=== PATIENT | male | born 1965 | race Caucasian/White ===

== ENCOUNTER 2020-08-23 23:46 | Inpatient (IN) | payer OTHER ==
[~2020-08-23] VITALS: Ht 170.2 cm; Wt 117.3 kg
[~2020-08-23 23:46] MED LIST: ANTIVERT 12.512.5 MG PO; AUGMENTIN 875-1 EACH PO; CYCLOBENZAPRINE10 MG PO; ECHOCARDIOGRAM; ERYTHROMYCIN O3.5 GM OS; IBUPROFEN600 MG PO; KEFLEX500 MG PO; LASIX20 MG PO; LISINOPRIL20 MG PO; LODINE CAP 300300 MG PO; MIRALAX17 GM PO; NAPROSYN500 MG PO; NEURONTIN600 MG PO; NORCO 7.5-3251 EACH PO; PERCOCET 5-3251 EACH PO; PERCOCET 5/325 T1 EA PO; PREDNISONE 50 M50 MG PO; Voltaren Gel 1% TOP; XYLOCAINE 2% JE30 ML EXT; ZANAFLEX4 MG PO; ZANTAC150 MG PO; ZESTRIL10 MG PO; ZOLOFT25 MG PO; [UNRECOGNIZED DRUG - REMARK]
[2020-08-24 00:19] LABS: HEMOGLOBIN 15.7 gm/dl (14.0-17.5); RED BLOOD COUNT 5.31 M/UL (4.20-5.50); WHITE BLOOD COUNT 13.4 K/UL (4.5-11.0)
[2020-08-24 00:33] LABS: BUN/CREATININE RATIO 17 (0-10)
[2020-08-25 02:55] LABS: RED BLOOD COUNT 5.48 M/UL (4.20-5.50); WHITE BLOOD COUNT 11.3 K/UL (4.5-11.0)
[2020-08-25 03:14] LABS: BUN/CREATININE RATIO 15 (0-10)
[2020-08-25 11:11] LABS: HIV SCREEN 4TH GENERATION WRFX Non Reactive (Non Reactive)
[2020-08-26 03:29] LABS: HEMOGLOBIN 15.3 gm/dl (14.0-17.5); RED BLOOD COUNT 5.3 M/UL (4.20-5.50)
[2020-08-26 04:05] LABS: BUN/CREATININE RATIO 14 (0-10)
[2020-08-26 08:15] LABS: HBSAG SCREEN Negative (Negative); HEP A AB, IGM Negative (Negative); HEP B CORE AB, IGM Negative (Negative); HEP C VIRUS AB <0.1 (0.0-0.9)
[2020-08-26] MEDS ORDERED: NORVASC5 MG PO (12:24)
== END 2020-08-26 14:35 | disposition home or self-care (01) | DRG 917 ==
LOC: ER1 23:46 → CDU 08-24 01:45 → PROG CARE 08-24 01:45
PROVIDERS: Internal Medicine; Physician Assistant; ADMIT Internal Medicine
PROC: B24BZZ4 Ultrasonography of Heart with Aorta, Transesophageal (ICD-10-PCS; principal; 2020-08-24)
DX: T43.621A Poisoning by amphetamines, accidental (unintentional), initial encounter (principal); J96.01 Acute respiratory failure with hypoxia; G92 Toxic encephalopathy; J96.02 Acute respiratory failure with hypercapnia; B19.10 Unspecified viral hepatitis B without hepatic coma; E87.2 Acidosis; F19.10 Other psychoactive substance abuse, uncomplicated; F32.9 Major depressive disorder, single episode, unspecified; Z20.822 Contact with and (suspected) exposure to COVID-19; E66.01 Morbid (severe) obesity due to excess calories; R73.9 Hyperglycemia, unspecified; I25.10 Atherosclerotic heart disease of native coronary artery without angina pectoris; D72.828 Other elevated white blood cell count; R40.0 Somnolence; G47.33 Obstructive sleep apnea (adult) (pediatric); R73.03 Prediabetes; I50.9 Heart failure, unspecified; Z68.30 Body mass index [BMI] 30.0-30.9, adult
CPT/HCPCS: ECHO; 36415; 36600; 70450; 71045; 71046; 72125; 80053; 80074; 80307; 81001; 82140; 82550; 82553; 82607; 82746; 82803; 82962; 83036; 83735; 83874; 83880; 84100; 84132; 84439; 84443; 84484; 85025; 85027; 86140; 87389; 93005; 93306; 94660; 94760; 96374; 99285; G0480; J1650; J1940; U0002

== ENCOUNTER 2020-10-13 11:14 | Emergency (ER) | payer OTHER ==
[~2020-10-13 11:14] MED LIST changes: +NORVASC5 MG PO
[2020-10-13 13:00] LABS: HEMOGLOBIN 16.8 gm/dl (14.0-17.5); RED BLOOD COUNT 5.69 M/UL (4.20-5.50); WHITE BLOOD COUNT 5.1 K/UL (4.5-11.0)
[2020-10-13 13:25] LABS: BUN/CREATININE RATIO 16 (0-10)
[2020-10-13] MEDS ORDERED: MORGIDOX100 MG PO (14:38)
== END 2020-10-13 15:00 | disposition home or self-care (01) ==
LOC: ER1 11:14
PROVIDERS: Physician Assistant
DX: R05 Cough (principal); R06.02 Shortness of breath; I11.0 Hypertensive heart disease with heart failure; I50.9 Heart failure, unspecified; Z20.822 Contact with and (suspected) exposure to COVID-19
CPT/HCPCS: 0240U; 71045; 80053; 82550; 82553; 83874; 83880; 84484; 85025; 99285

== ENCOUNTER → 2021-02-03 | Outpatient (CLI) | payer OTHER ==
[~2021-02-03] MED LIST changes: +MORGIDOX100 MG PO
== END ==
LOC: HEART 5 11:08
DX: I11.0 Hypertensive heart disease with heart failure (principal); I50.9 Heart failure, unspecified; R06.02 Shortness of breath; M51.36 Other intervertebral disc degeneration, lumbar region; F32.9 Major depressive disorder, single episode, unspecified; K21.9 Gastro-esophageal reflux disease without esophagitis; B19.20 Unspecified viral hepatitis C without hepatic coma; Z00.00 Encounter for general adult medical examination without abnormal findings
CPT/HCPCS: 94060; 94729

== ENCOUNTER 2021-02-21 17:01 | Observation (INO) | payer OTHER ==
[~2021-02-21] VITALS: Ht 170.2 cm; Wt 122.6 kg
[2021-02-21 17:47] LABS: HEMOGLOBIN 15.5 gm/dl (14.0-17.5); RED BLOOD COUNT 5.21 M/UL (4.20-5.50)
[2021-02-21 18:05] LABS: BUN/CREATININE RATIO 17 (0-10)
== END 2021-02-22 15:12 | disposition left against medical advice (07) ==
LOC: ER1 17:01 → M/S 20:26 → CDU 20:26 → M/S 23:10
PROVIDERS: Emergency Medicine; Internal Medicine Infectious Disease; ADMIT Internal Medicine
DX: I11.0 Hypertensive heart disease with heart failure (principal); I50.33 Acute on chronic diastolic (congestive) heart failure; F17.200 Nicotine dependence, unspecified, uncomplicated; F19.10 Other psychoactive substance abuse, uncomplicated; E66.2 Morbid (severe) obesity with alveolar hypoventilation; B18.1 Chronic viral hepatitis B without delta-agent; R73.03 Prediabetes; Z20.822 Contact with and (suspected) exposure to COVID-19
CPT/HCPCS: 36415; 71045; 80053; 80061; 80307; 82550; 82553; 83036; 83874; 83880; 84484; 84550; 85025; 86140; 87040; 93005; 94660; 94760; 96374; 99285; G0378; J1940; U0002

== ENCOUNTER → 2021-08-03 | Outpatient (CLI) | payer OTHER | LOC: EXRD 10:14 | DX: R06.02 Shortness of breath (principal) | CPT/HCPCS: 71046 ==

== ENCOUNTER → 2021-08-26 | Outpatient (CLI) | payer OTHER | LOC: KOH-I 13:51 | DX: R93.89 Abnormal findings on diagnostic imaging of other specified body structures (principal); R06.02 Shortness of breath | CPT/HCPCS: 71250 ==

== ENCOUNTER → 2021-09-01 | Outpatient (CLI) | payer OTHER | LOC: WCC 07:31 | DX: I87.2 Venous insufficiency (chronic) (peripheral) (principal); L97.822 Non-pressure chronic ulcer of other part of left lower leg with fat layer exposed; L97.212 Non-pressure chronic ulcer of right calf with fat layer exposed; G47.30 Sleep apnea, unspecified; I11.0 Hypertensive heart disease with heart failure; I50.9 Heart failure, unspecified; B19.20 Unspecified viral hepatitis C without hepatic coma; R73.09 Other abnormal glucose; F15.10 Other stimulant abuse, uncomplicated; E66.09 Other obesity due to excess calories; Z68.41 Body mass index [BMI] 40.0-44.9, adult; Z79.899 Other long term (current) drug therapy ==

== ENCOUNTER → 2021-09-08 | Outpatient (CLI) | payer OTHER | END | disposition home or self-care (01) | LOC: WCC 07:20 | DX: I87.2 Venous insufficiency (chronic) (peripheral) (principal); L97.822 Non-pressure chronic ulcer of other part of left lower leg with fat layer exposed; L97.812 Non-pressure chronic ulcer of other part of right lower leg with fat layer exposed; I11.0 Hypertensive heart disease with heart failure; I50.9 Heart failure, unspecified; R73.09 Other abnormal glucose; G47.30 Sleep apnea, unspecified; F15.10 Other stimulant abuse, uncomplicated; E66.09 Other obesity due to excess calories; B19.20 Unspecified viral hepatitis C without hepatic coma; Z68.41 Body mass index [BMI] 40.0-44.9, adult; Z79.899 Other long term (current) drug therapy ==

== ENCOUNTER → 2021-09-10 | Outpatient (CLI) | payer OTHER | LOC: EXRD 10:55 | DX: M25.552 Pain in left hip (principal); M25.512 Pain in left shoulder; M19.012 Primary osteoarthritis, left shoulder | CPT/HCPCS: 73030; 73502 ==

== ENCOUNTER 2021-09-14 14:50 | Emergency (ER) | payer OTHER | END 2021-09-14 15:30 | disposition left against medical advice (07) | LOC: ER1 14:50 | DX: Z53.21 Procedure and treatment not carried out due to patient leaving prior to being seen by health care provider (principal) ==

== ENCOUNTER → 2021-09-15 | Outpatient (CLI) | payer OTHER | LOC: WCC 08:58 | DX: I87.2 Venous insufficiency (chronic) (peripheral) (principal); L97.822 Non-pressure chronic ulcer of other part of left lower leg with fat layer exposed; L97.212 Non-pressure chronic ulcer of right calf with fat layer exposed; S81.802A Unspecified open wound, left lower leg, initial encounter; G47.30 Sleep apnea, unspecified; I11.0 Hypertensive heart disease with heart failure; I50.9 Heart failure, unspecified; B19.20 Unspecified viral hepatitis C without hepatic coma; R60.9 Edema, unspecified; R73.09 Other abnormal glucose; F15.10 Other stimulant abuse, uncomplicated; E66.09 Other obesity due to excess calories; Z68.41 Body mass index [BMI] 40.0-44.9, adult; Z79.899 Other long term (current) drug therapy ==

== ENCOUNTER → 2021-09-22 | Outpatient (CLI) | payer OTHER | LOC: WCC 08:41 | DX: L97.821 Non-pressure chronic ulcer of other part of left lower leg limited to breakdown of skin (principal); L97.811 Non-pressure chronic ulcer of other part of right lower leg limited to breakdown of skin; G47.30 Sleep apnea, unspecified; I11.0 Hypertensive heart disease with heart failure; I50.9 Heart failure, unspecified; B19.20 Unspecified viral hepatitis C without hepatic coma; R60.9 Edema, unspecified; R73.09 Other abnormal glucose; F15.10 Other stimulant abuse, uncomplicated; E66.09 Other obesity due to excess calories; R73.03 Prediabetes ==

== ENCOUNTER → 2021-09-28 | Outpatient (CLI) | payer OTHER | LOC: US 13:30 | DX: S81.809A Unspecified open wound, unspecified lower leg, initial encounter (principal); G47.30 Sleep apnea, unspecified; I12.9 Hypertensive chronic kidney disease with stage 1 through stage 4 chronic kidney disease, or unspecified chronic kidney disease; I50.9 Heart failure, unspecified; B19.20 Unspecified viral hepatitis C without hepatic coma; R73.09 Other abnormal glucose; F15.10 Other stimulant abuse, uncomplicated; E66.09 Other obesity due to excess calories | CPT/HCPCS: 93925 ==

== ENCOUNTER → 2021-09-30 | Outpatient (CLI) | payer OTHER | LOC: WCC 07:29 | DX: S81.802D Unspecified open wound, left lower leg, subsequent encounter (principal); G47.30 Sleep apnea, unspecified; I11.0 Hypertensive heart disease with heart failure; I50.9 Heart failure, unspecified; B19.20 Unspecified viral hepatitis C without hepatic coma; R60.9 Edema, unspecified; R73.09 Other abnormal glucose; F15.10 Other stimulant abuse, uncomplicated; E66.09 Other obesity due to excess calories; Z68.41 Body mass index [BMI] 40.0-44.9, adult | CPT/HCPCS: G0463 ==

== ENCOUNTER → 2021-10-26 | Outpatient (CLI) | payer OTHER | LOC: HEART 5 09-30 11:00 | DX: S81.802A Unspecified open wound, left lower leg, initial encounter (principal); S81.801A Unspecified open wound, right lower leg, initial encounter; I11.0 Hypertensive heart disease with heart failure; I50.9 Heart failure, unspecified; B19.20 Unspecified viral hepatitis C without hepatic coma; R60.9 Edema, unspecified; R73.09 Other abnormal glucose; F15.10 Other stimulant abuse, uncomplicated; E66.09 Other obesity due to excess calories | CPT/HCPCS: 93970 ==

== ENCOUNTER 2021-11-08 09:11 | Emergency (ER) | payer OTHER ==
[2021-11-08] MEDS ORDERED: ERYTHROMYCIN O3.5 GM OU (10:10)
== END 2021-11-08 10:15 | disposition home or self-care (01) ==
LOC: ER1 09:11
DX: H10.9 Unspecified conjunctivitis (principal)
CPT/HCPCS: 99283

== ENCOUNTER 2021-11-25 20:04 | Emergency (ER) | payer OTHER ==
[~2021-11-25 20:04] MED LIST changes: +ERYTHROMYCIN O3.5 GM OU
[2021-11-25 20:47] LABS: HEMOGLOBIN 17.6 gm/dl (14.0-17.5); RED BLOOD COUNT 5.91 M/UL (4.20-5.50); WHITE BLOOD COUNT 9.7 K/UL (4.5-11.0)
[2021-11-25 21:23] LABS: BUN/CREATININE RATIO 14 (0-10)
== END 2021-11-25 22:16 | disposition left against medical advice (07) ==
LOC: ER1 20:04
PROVIDERS: Family Medicine
DX: R12 Heartburn (principal); R06.02 Shortness of breath
CPT/HCPCS: 71045; 80053; 82550; 82553; 84484; 85025; 93005

== ENCOUNTER → 2022-01-10 | Outpatient (CLI) | payer OTHER ==
[~2022-01-10] MED LIST changes: +ASPIRIN EC81 MG PO; +ATENOLOL25 MG PO; +ATORVASTATIN CA20 MG PO; +CARVEDILOL25 MG PO; +NITROGLYCERIN0.4 MG SL
== END ==
LOC: SLEEP 10:54
DX: G47.33 Obstructive sleep apnea (adult) (pediatric) (principal)
CPT/HCPCS: 95811